=== PATIENT | male | born 1955 | race Caucasian/White ===

== ENCOUNTER 2019-05-27 18:43 | Emergency (ER) | payer BC, OTHER ==
[2019-05-27 18:51] VITALS: BP 123/76
[2019-05-27] MEDS ORDERED: GLUCAGON,HUMAN RECOMB 1 MG INJ IV ONE (19:25)
[2019-05-27] MEDS ORDERED: ONDANSETRON HCL INJ/PF 4 MG/2 ML SDV IV ONE (19:25)
--- NOTE | 2019-05-27 19:27 | ER Document Report ---
ED Medical Screen (RME) - General Stated Complaint: FEELS LIKE SOMETHING STUCK IN THROAT Time Seen by Provider: 05/27/19 19:23 Primary Care Provider: JANETTE CAMACHO PA-C [Primary Care Provider] - Follow up as needed Mode of Arrival: Ambulatory Information source: Patient Notes: Patient reports that he was eating chicken around 430 this evening and felt as though food got stuck. Patient is uncertain if it may be a chicken bone. Patient denies any difficulty breathing nausea or vomiting. Patient able to manage his oral secretions. hx: Hypertension, dyslipidemia I have greeted and performed a rapid initial assessment of this patient. A comprehensive ED assessment and evaluation of the patient, analysis of test results and completion of the medical decision making process will be conducted by additional ED providers. TRAVEL OUTSIDE OF THE [place] IN LAST 30 DAYS: No - Related Data Allergies/Adverse Reactions: No Known Allergies Allergy (Verified 06/01/15 20:52) Past Medical History - Social History Chew tobacco use (# tins/day): No Frequency of alcohol use: None Drug Abuse: None - Past Medical History Cardiac Medical History: Reports: Hx Hypercholesterolemia, Hx Hypertension Physical Exam - Vital signs Vitals: Temp Pulse Resp BP Pulse Ox 97.7 F 54 L 18 123/76 98 05/27/19 18:50 05/27/19 18:50 05/27/19 18:50 05/27/19 18:50 05/27/19 18:50 - General General appearance: Appears well, Alert Notes: Respirations even unlabored, patient nontoxic in appearance. Patient able to manage oral secretions Course - Vital Signs Vital signs: Temp Pulse Resp BP Pulse Ox 97.7 F 54 L 18 123/76 98 05/27/19 18:50 05/27/19 18:50 05/27/19 18:50 05/27/19 18:50 05/27/19 18:50 Doctor's Discharge - Discharge Referrals: JANETTE CAMACHO PA-C [Primary Care Provider] - Follow up as needed
--- NOTE | 2019-05-27 21:51 | RADIOLOGY REPORT (SQ) ---
EXAM DESCRIPTION: XR CHEST 2 VIEWS COMPLETED DATE/TME: 05/27/2019 19:23 CLINICAL HISTORY: 63 years, Male, food bolus impaction, ?chicken bone COMPARISON: None. NUMBER OF VIEWS: 2 TECHNIQUE: 2 views of the chest LIMITATIONS: None. FINDINGS: Heart size normal. Lungs are clear. No radiopaque foreign body. No pneumothorax. Well-circumscribed ovoid density projects over the scapula. This could reflect bone island IMPRESSION: Lungs are clear. No radiopaque foreign body copyright 2010 [employer]- All Rights Reserved
--- NOTE | 2019-05-27 23:51 | ER Document Report ---
ED General - General Chief Complaint: Swallowed Foreign Body Stated Complaint: FEELS LIKE SOMETHING STUCK IN THROAT Time Seen by Provider: 05/27/19 19:23 Primary Care Provider: JANETTE CAMACHO PA-C [NO LOCAL MD] - Follow up in 3-5 days Mode of Arrival: Ambulatory Information source: Patient Notes: 63-year-old male with history of high blood pressure high cholesterol presents to the emergency department with complaints of something stuck in his throat. 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 He reports when he started eating the chicken he felt like something got stuck in his throat. The chicken was cooked on a grill. He reports he is swallowing but it feels like something is in the back of his throat. Denies fever vomiting diarrhea. Denies abdominal pain. TRAVEL OUTSIDE OF THE [place] IN LAST 30 DAYS: No - HPI Onset: This afternoon Onset/Duration: Sudden Quality of pain: No pain Associated symptoms: None. denies: Nausea, Vomiting Exacerbated by: Other - Swallowing Relieved by: Denies - Related Data Allergies/Adverse Reactions: No Known Allergies Allergy (Verified 06/01/15 20:52) Past Medical History - General Information source: Patient - Social History Smoking Status: Former Smoker Chew tobacco use (# tins/day): No Frequency of alcohol use: None Drug Abuse: None Lives with: Family Family History: Reviewed & Not Pertinent Patient has suicidal ideation: No Patient has homicidal ideation: No - Past Medical History Cardiac Medical History: Reports: Hx Hypercholesterolemia, Hx Hypertension Surgical Hx: Negative Review of Systems - Review of Systems Notes: Review HPI for review of systems., All other systems negative Physical Exam - Vital signs Vitals: Temp Pulse Resp BP Pulse Ox 97.7 F 54 L 18 123/76 98 05/27/19 18:50 05/27/19 18:50 05/27/19 18:50 05/27/19 18:50 05/27/19 18:50 - Notes Notes: PHYSICAL EXAMINATION: GENERAL: Well-appearing and in no acute distress HEAD: Atraumatic, normocephalic. EYES: Pupils equal round and reactive to light, extraocular movements intact, sclera anicteric, conjunctiva are normal. ENT: nares patent, oropharynx clear without exudates. Moist mucous membranes. NECK: Normal range of motion, supple without lymphadenopathy LUNGS: CTAB and equal. No wheezes rales or rhonchi. HEART: Regular rate and rhythm without murmurs ABDOMEN: Soft, no tenderness. No guarding, no rebound EXTREMITIES: Normal range of motion, NEUROLOGICAL: Cranial nerves grossly intact. PSYCH: Normal mood, normal affect. SKIN: Warm, Dry, normal turgor, no rashes or lesions noted Course - Re-evaluation Re-evalutation: 05/27/19 23:51 63-year-old male presents with complaints of something stuck in his throat possibly. 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 He reports he started eating felt like something got stuck in his throat. He is able to swallow without problems no vomiting but reports feels li ke something is stuck there. Patient speaking in clear voice no respiratory distress. Chest x-ray is negative., CT soft tissue is negative. Patient is drinking a Coke without problems. No vomiting. Swallows without problems. Still feels like something is back there. We discussed the importance of follow-up with his provider on Thursday for possible wire from the grill brush caught in his throat. He was instructed he may need a EGD to evaluate. He was instructed to return immediately if he has any trouble swallowing he verbalized understanding. Chest X-Ray 05/27/19 19:23 IMPRESSION: Lungs are clear. No radiopaque foreign body copyright 2010 [employer]- All Rights Reserved Soft Tissue Neck CT 05/27/19 23:48 IMPRESSION: No foreign body. The airway is widely patent TECHNICAL DOCUMENTATION: Quality ID # 436: Final reports with documentation of one or more dose reduction techniques (e.g., Automated exposure control, adjustment of the mA and/or kV according to patient size, use of iterative reconstruction technique) copyright 2010 [employer]- All Rights Reserved - Vital Signs Vital signs: Temp Pulse Resp BP Pulse Ox 97.7 F 54 L 18 123/76 98 05/27/19 18:50 05/27/19 18:50 05/27/19 18:50 05/27/19 18:50 05/27/19 18:50 - Diagnostic Test Radiology reviewed: Image reviewed, Reports reviewed Discharge - Discharge Clinical Impression: Throat irritation Condition: Stable Disposition: HOME, SELF-CARE Additional Instructions: *You have been evaluated for throat irritation feeling like something stuck in your throat The CT and x-ray was negative for foreign bodies *Follow-up with a primary care provider on Thursday for continued irritation *Return to ED for worsening condition change, needs, unable to swallow vomiting fever Referrals: JANETTE CAMACHO PA-C [NO LOCAL MD] - Follow up in 3-5 days
--- NOTE | 2019-05-28 00:38 | RADIOLOGY REPORT (SQ) ---
EXAM DESCRIPTION: CT NECK WITH IV CONTRAST COMPLETED DATE/TME: 05/27/2019 23:48 CLINICAL HISTORY: 63 years, Male, eval for fb COMPARISON: None. TECHNIQUE: 280 Images stored on PACS. All CT scanners at this facility use dose modulation, iterative reconstruction, and/or weight based dosing when appropriate to reduce radiation dose to as low as reasonably achievable (ALARA). [facility]: Dose Right [facility]: CareDose [facility]: Dose Right [facility]: Teradose 4D [facility]: Artimplant AB LIMITATIONS: None. FINDINGS: Limited evaluation of brain parenchyma is unremarkable. The globes are intact. Paranasal sinuses are well aerated. Limited evaluation of the lung apices is unremarkable. No enhancing abnormality. The visualized thyroid gland enhances normally. The epiglottis is normal. There is no radiopaque foreign body. The airway is widely patent. IMPRESSION: No foreign body. The airway is widely patent TECHNICAL DOCUMENTATION: Quality ID # 436: Final reports with documentation of one or more dose reduction techniques (e.g., Automated exposure control, adjustment of the mA and/or kV according to patient size, use of iterative reconstruction technique) copyright 2010 [employer]- All Rights Reserved
== END 2019-05-28 02:25 | disposition home or self-care (01) ==
LOC: ER 18:43
DX: R09.89 Other specified symptoms and signs involving the circulatory and respiratory systems (principal); Z87.891 Personal history of nicotine dependence; I10 Essential (primary) hypertension
CPT/HCPCS: 99284; 96374; 96375; 71046; 70491; J1610; J2405